=== PATIENT | female | born 2000 | race Hispanic/Latino ===

== ENCOUNTER 2021-05-28 22:58 | Emergency (ER) | payer OTHER ==
--- NOTE | 2021-05-29 | Event Note ---
ED Screening Note ED Screening Note: Patient is a 20-year-old female who presents emergency room with complaints of needing medical clearance for [facility] for drug rehab She states that she uses methamphetamines, heroin and also takes pills She states that she did heroin approximately 4 PM today Denies any alcohol use She denies any physical complaints at this time She denies any past medical history Allergy to Bactrim She denies any SI or HI This initial assessment/diagnostic orders/clinical plan/treatment(s) is/are subject to change based on patients health status, clinical progression and re- assessment by fellow clinical providers in the ED. Further treatment and workup at subsequent clinical providers discretion. Patient/guardian urged not to elope from the ED as their condition may be serious if not clinically assessed and managed. Initial orders include: Medical clearance orders
[2021-05-29 00:31] LABS: Hematocrit 46.8 % (30.3-42.9); Hemoglobin 15.2 gm/dl (10.1-14.3); Mean Corpuscular HGB Conc 33 % (30-34); Mean Corpuscular Volume 93 fl (79-97); Platelet Count 380 K/mm3 (140-440); Red Blood Count 5.04 M/mm3 (3.65-5.03)
[2021-05-29 00:46] LABS: Alanine Aminotransferase 57 units/L (7-56); BUN/Creatinine Ratio 20; Blood Urea Nitrogen 18 mg/dL (7-17); Calcium 9.4 mg/dL (8.4-10.2); Hemolysis Index 19
[2021-05-29 00:47] LABS: Bilirubin,Urine NEG (Negative); Blood,Urine NEG (Negative); Color,Urine Yellow (Yellow); Mucus,Urine FEW /HPF; Urobilinogen,Urine < 2.0 mg/dL (<2.0)
--- NOTE | 2021-05-29 01:01 | XRay Report ---
CHEST PA AND LATERAL VIEWS INDICATION: tachycardia, medical clearance. COMPARISON: None. FINDINGS: Support devices: None. Heart: Within normal limits. Lungs/Pleura: No acute pulmonary or pleural findings. IMPRESSION: 1. No acute findings. Signer Name: Bernardino Sandoval MD Signed: 05/29/2021 12:57 AM Workstation Name: [id number]
[2021-05-29 01:05] LABS: Amphetamine Screen,Urine PRESUMPTIVE NEGATIVE; Benzodiazepines Screen,Urine PRESUMPTIVE NEGATIVE; Cannabinoid Screen,Urine PRESUMPTIVE NEGATIVE; Cocaine Screen,Urine PRESUMPTIVE NEGATIVE; Methadone Screen,Urine PRESUMPTIVE NEGATIVE; Opiate Screen,Urine PRESUMPTIVE NEGATIVE
[2021-05-29 01:14] LABS: Hemoglobin 14.9 gm/dl (10.1-14.3); Mean Corpuscular HGB Conc 33 % (30-34); Mean Corpuscular Volume 91 fl (79-97); Platelet Count 396 K/mm3 (140-440); Red Blood Count 4.93 M/mm3 (3.65-5.03)
[2021-05-29 01:23] LABS: Band Neutrophils # (Manual) 0.5 K/mm3; Large Platelets Few; Monocytes % (Manual) 3.5 % (0.0-7.3); Platelet Estimate Consistent w Auto; RBC Morphology Normal; Total Cells Counted 200
[2021-05-29] MEDS ORDERED: ONDANSETRON 4 MG/2 ML INJ IV STA (02:03)
[2021-05-29] MEDS ORDERED: SODIUM CHLORIDE 0.9% 1000 ML 1,000 ML IV ONE ×2 (04:05→04:09)
--- NOTE | 2021-05-29 04:10 | Emergency Department Report ---
ED Medical Clearance HPI - General Chief complaint: Medical Clearance Stated complaint: HEROINE RELAPS/EVAL FOR ANCHOR Time Seen by Provider: 05/28/21 23:58 Source: patient Mode of arrival: Ambulatory - History of Present Illness Initial comments: Patient is a 20-year-old female that presents emergency room for medical clearance. Patient sent here from her rehab center. Patient was already in a rehab when she left and possibly one of the street and the rehab center says she needs to be medically cleared again due to her relapse. Patient states that she bought some pill form heroin and cut it up and snorted the pill fragments. Patient denies pain. Patient denies chest pain. Patient denies fever or chills. Patient states she has not eaten for 2 days. Patient states she last used approximately 4 hours prior to arrival. Patient denies recent travel. Patient denies recent international travel. Patient denies exposure to the novel coronavirus. Patient denies sick contacts. Patient denies fever and chills. Patient denies cough. Patient denies diarrhea. Patient denies coming in contact with anybody with symptoms of the novel coronavirus. Complaint: medical clearance request -: Sudden Reason for Medical Clearance: intoxication Alledged Intoxication: Yes Compliant with Home Medications: No Associated Symptoms: denies other symptoms. denies: chest pain, shortness of breath, palpitations, diaphoresis, confusion, cough, fever/chills, headaches, anorexia, malaise, nausea/vomiting, rash, seizure, syncope, weakness Treatments Prior to Arrival: none Home medications: Previous Rx's Medication Instructions Recorded Last Taken Type Doxycycline Hyclate [Doxycycline 100 mg PO Q12HR 7 Days #14 tab 05/29/21 Unknown Rx Hyclate TAB] Allergies/Adverse reactions: Allergies Allergy/AdvReac Type Severity Reaction Status Date / Time sulfamethoxazole Allergy Unknown Verified 05/28/21 23:51 [From Bactrim] trimethoprim [From Bactrim] Allergy Unknown Verified 05/28/21 23:51 ED Review of Systems ROS: Stated complaint: HEROINE RELAPS/EVAL FOR ANCHOR Other details as noted in HPI Constitutional: denies: chills, fever Eyes: denies: eye pain, eye discharge, vision change ENT: denies: ear pain, throat pain Respiratory: denies: cough, shortness of breath, wheezing Cardiovascular: denies: chest pain, palpitations Endocrine: no symptoms reported Gastrointestinal: denies: abdominal pain, nausea, diarrhea Genitourinary: denies: urgency, dysuria, discharge Musculoskeletal: denies: back pain, joint swelling, arthralgia Skin: denies: rash, lesions Neurological: denies: headache, weakness, paresthesias Psychiatric: denies: anxiety, depression Hematological/Lymphatic: denies: easy bleeding, easy bruising ED Past Medical Hx - Past Medical History Previous Medical History?: Yes Additional medical history: Opiate addiction - Surgical History Past Surgical History?: No - Family History Family history: no significant - Social History Smoking Status: Current Every Day Smoker Substance Use Type: Other - Medications Home Medications: Home Medications Medication Instructions Recorded Confirmed Last Taken Type Doxycycline Hyclate [Doxycycline 100 mg PO Q12HR 7 Days #14 tab 05/29/21 Unknown Rx Hyclate TAB] ED Physical Exam - General Limitations: No Limitations General appearance: alert, in no apparent distress - Head Head exam: Present: atraumatic, normocephalic - Eye Eye exam: Present: normal appearance - ENT ENT exam: Present: mucous membranes moist - Neck Neck exam: Present: normal inspection - Respiratory Respiratory exam: Present: normal lung sounds bilaterally. Absent: respiratory distress, wheezes, rales - Cardiovascular Cardiovascular Exam: Present: regular rate, normal rhythm. Absent: systolic mur mur, diastolic murmur, rubs, gallop - GI/Abdominal GI/Abdominal exam: Present: soft, normal bowel sounds. Absent: distended, tenderness, guarding - Extremities Exam Extremities exam: Present: normal inspection - Back Exam Back exam: Present: normal inspection - Neurological Exam Neurological exam: Present: alert, oriented X3 - Psychiatric Psychiatric exam: Present: normal affect, normal mood - Skin Skin exam: Present: warm, dry, intact, normal color. Absent: rash ED Course Vital Signs 05/28/21 05/29/21 05/29/21 23:54 04:51 05:01 Temperature 97.8 F Pulse Rate 131 H 119 H 119 H Respiratory 18 10 L 11 L Rate Blood Pressure 124/77 O2 Sat by Pulse 94 92 90 Oximetry 05/29/21 05/29/21 05/29/21 05:15 05:31 06:25 Temperature Pulse Rate 116 H 123 H 112 H Respiratory 8 L 9 L 16 Rate Blood Pressure 109/66 109/66 104/73 O2 Sat by Pulse 98 97 100 Oximetry 05/29/21 05/29/21 05/29/21 06:31 06:45 07:01 Temperature Pulse Rate 112 H 111 H 109 H Respiratory 11 L 11 L 12 Rate Blood Pressure 104/73 104/73 109/66 O2 Sat by Pulse 100 100 96 Oximetry 05/29/21 05/29/21 05/29/21 07:15 07:30 07:31 Temperature 98.4 F Pulse Rate 111 H 113 H Respiratory 12 10 L Rate Blood Pressure 109/66 109/66 O2 Sat by Pulse 92 89 Oximetry 05/29/21 05/29/21 05/29/21 07:45 07:46 08:01 Temperature Pulse Rate 109 H 113 H Respiratory 11 L 18 14 Rate Blood Pressure 104/73 103/64 O2 Sat by Pulse 90 99 96 Oximetry 05/29/21 05/29/21 05/29/21 08:15 08:31 08:45 Temperature Pulse Rate 116 H 112 H 107 H Respiratory 10 L 17 12 Rate Blood Pressure 103/64 103/64 103/64 O2 Sat by Pulse 95 97 90 Oximetry 05/29/21 05/29/21 05/29/21 09:01 09:15 09:31 Temperature Pulse Rate 109 H 106 H 110 H Respiratory 16 13 10 L Rate Blood Pressure 103/64 103/64 103/64 O2 Sat by Pulse 88 94 92 Oximetry 05/29/21 05/29/21 05/29/21 09:45 10:01 10:15 Temperature Pulse Rate 100 H 103 H Respiratory 15 12 Rate Blood Pressure 103/64 103/64 103/64 O2 Sat by Pulse 97 91 98 Oximetry 05/29/21 05/29/21 05/29/21 10:31 10:45 11:01 Temperature Pulse Rate Respiratory Rate Blood Pressure 103/64 103/64 103/64 O2 Sat by Pulse 92 89 89 Oximetry 05/29/21 05/29/21 05/29/21 11:15 11:31 11:45 Temperature Pulse Rate Respiratory Rate Blood Pressure 103/64 103/64 103/64 O2 Sat by Pulse 89 90 87 Oximetry 05/29/21 05/29/21 05/29/21 12:01 12:15 12:31 Temperature Pulse Rate Respiratory Rate Blood Pressure 103/64 103/64 103/64 O2 Sat by Pulse 87 92 95 Oximetry 05/29/21 05/29/21 05/29/21 12:45 13:01 13:15 Temperature Pulse Rate Respiratory Rate Blood Pressure 103/64 103/64 103/64 O2 Sat by Pulse 95 93 91 Oximetry 05/29/21 05/29/21 05/29/21 13:31 13:45 14:00 Temperature Pulse Rate Respiratory Rate Blood Pressure 103/64 103/64 O2 Sat by Pulse 91 91 89 Oximetry - Reevaluation(s) Reevaluation #1: Patient oxygen saturation 94% on room air. Patient is 90% with ambulation. Patient placed on oxygen. 05/29/21 04:34 Reevaluation #2: I discussed all results with patient. I discussed plan of care with patient. Patient agrees with plan of care and admission. Patient to be admitted to the hospitalist service. 05/29/21 06:14 - Consultations Consultation #1: Hospitalist consulted for admission. Hospitalist to admit patient. Dr. Schrader accepted the patient. 05/29/21 06:14 ED Medical Decision Making - Lab Data Result diagrams: 05/29/21 00:54 05/29/21 00:08 - EKG Data EKG shows normal: sinus rhythm, axis, intervals, QRS complexes, ST-T waves Rate: tachycardia - Radiology Data Radiology results: report reviewed, image reviewed interpreted by me: Chest x-ray: No pneumonia, no pneumothorax, no foreign body, no osseous findings, no acute findings CHEST PA AND LATERAL VIEWS INDICATION: tachycardia, medical clearance. COMPARISON: None. FINDINGS: Support devices: None. Heart: Within normal limits. Lungs/Pleura: No acute pulmonary or pleural findings. IMPRESSION: 1. No acute findings. CTA CHEST WITH IV CONTRAST INDICATION: Hypoxia and Tachycardia. TECHNIQUE: Axial CT images were obtained through the chest after injection of IV contrast. 3 plane MIP reconstructions were produced. All CT scans at this location are performed using CT dose reduction for ALARA by means of automated exposure control. COMPARISON: None available. FINDINGS: Pulmonary Arteries: No pulmonary emboli. Thoracic Aorta: No acute abnormality. Heart: Normal. Lungs: Within the anterior inferior right upper lobe, there is subtle groundglass airspace disease. Similar changes are noted in the anterior left upper lobe. Lungs are otherwise clear. Pleura: No pleural effusion. No pneumothorax. Lymph Nodes: No significant adenopathy. Additional Findings: None. Upper Abdomen: On axial image 119 there is hyperdensity in the silverio hepatis which measures 1.9 cm. Skeletal Structures: No significant osseous abnormality. IMPRESSION: 1. No CT evidence for pulmonary embolism. 2. Subtle groundglass opacities in the medial anterior upper lobes bilaterally. These are predominantly peribronchovascular in distribution and may be due to mild lower airways disease. 3. Nonspecific hyperdensity measuring 1.9 cm in the silverio hepatis. This is incompletely characterized on CT chest. Hepatic artery aneurysm could have this appearance. - Medical Decision Making Patient is a 20-year-old female that presents emergency room for medical clearance. Patient states that she was sent to [facility] patient states she was already patient was seen that he relapsed using heroin pills. Patient states never had a diagnosis of leukemia. Patient has done which showed evaded BUN and extremely elevated WBC 47. Patient's WBC was rechecked and it came out the same. Patient given fluids in ER. Patient also found to be tachycardic. Patient was hypoxic with ambulation. Patient ambulated twice and her oxygen saturation dropped below 90 on both encounters. Patient had a chest x-ray which was negative for acute findings. Due to the patient's hypoxia and tachycardia, the patient had a CTA of the chest and was negative for acute findings. Patient is unable to medically cleared for psychiatric admission due to the abnormal findings and hypoxia. Patient admitted to the hospitalist service for further evaluation treatment and final disposition and medical clearance. Critical care time documented due to the multiple reassessments, prolonged time at the bedside, interpretation of diagnostics and labs. - Differential Diagnosis Elevated WBC, dehydration, hypoxia, respiratory failure, PE, pneumonia ED Disposition Clinical Impression: Hypoxia, Dehydration, Tachycardia Respiratory failure Qualifiers: Chronicity: acute Respiratory failure complication: hypoxia Qualified Code(s): J96.01 - Acute respiratory failure with hypoxia Elevated WBC count Qualifiers: Leukocytosis type: unspecified Qualified Code(s): D72.829 - Elevated white blood cell count, unspecified Disposition: 09 ADMITTED INPATIENT Is pt being admited?: Yes Does the pt Need Aspirin: No Condition: Critical Instructions: Hypoxemia, Sinus Tachycardia, Dehydration, Adult, [id number] Prescriptions: Doxycycline Hyclate [Doxycycline Hyclate TAB] 100 mg PO Q12HR 7 Days #14 tab Referrals: PRIMARY CARE, [Primary Care Provider] - 3-5 Days Time of Disposition: 05:15
--- NOTE | 2021-05-29 06:15 | Cat Scan Report ---
CTA CHEST WITH IV CONTRAST INDICATION: Hypoxia and Tachycardia. TECHNIQUE: Axial CT images were obtained through the chest after injection of IV contrast. 3 plane MIP reconstru ctions were produced. All CT scans at this location are performed using CT dose reduction for ALARA b y means of automated exposure control. COMPARISON: None available. FINDINGS: Pulmonary Arteries: No pulmonary emboli. Thoracic Aorta: No acute abnormality. Heart: Normal. Lungs: Within the anterior inferior right upper lobe, there is subtle groundglass airspace disease. S imilar changes are noted in the anterior left upper lobe. Lungs are otherwise clear. Pleura: No pleural effusion. No pneumothorax. Lymph Nodes: No significant adenopathy. Additional Findings: None. Upper Abdomen: On axial image 119 there is hyperdensity in the silverio hepatis which measures 1.9 cm. Skeletal Structures: No significant osseous abnormality. IMPRESSION: 1. No CT evidence for pulmonary embolism. 2. Subtle groundglass opacities in the medial anterior upper lobes bilaterally. These are predominant ly peribronchovascular in distribution and may be due to mild lower airways disease. 3. Nonspecific hyperdensity measuring 1.9 cm in the silverio hepatis. This is incompletely characterized on CT chest. Hepatic artery aneurysm could have this appearance. Signer Name: Bernardino Sandoval MD Signed: 05/29/2021 6:11 AM Workstation Name: [id number]
[2021-05-29 09:28] VITALS: BP 103/64
--- NOTE | 2021-05-29 14:12 | History and Physical Report ---
History of Present Illness Date of admission: 05/29/21 06:04 Chief complaint: 20 yo female admitted for "medical clearance" and hypoxic resp failure. She states that she had used heroin several days ago and had self checked in to [facility]. Per hospital, she needed medical clearance. She states on my enoucnter that she had no acute complaints. She had no issues with SAUCEDO,CP,N/V/D,diarreha, chest pain, abdominal pain. Labs are significant for elevated white blood cell count to 47.6. Patient is afebrile, VSS. She denies any prior history of leukemia or recent weight loss. Remainder of ROS negative except for stated above PMhx: denies PSHx: denies FH reviewed non contributory. SH: smoking: Denies ETOH: denies Rec drugs: herion, attempting to sober from rec drug use Recently at [facility]. Medications and Allergies Allergies Allergy/AdvReac Type Severity Reaction Status Date / Time sulfamethoxazole Allergy Unknown Verified 05/28/21 23:51 [From Bactrim] trimethoprim [From Bactrim] Allergy Unknown Verified 05/28/21 23:51 Home Medications Medication Instructions Recorded Confirmed Last Taken Type No Known Home Medications [No 05/29/21 05/29/21 Unknown History Reported Home Medications] Review of Systems All systems: negative (for stated in HPI) Exam - Physical Exam Narrative exam: General appearance: Present: no acute distress, well-nourished - EENT Eyes: Present: PERRL, EOM intact. Absent: scleral icterus ENT: hearing intact, clear oral mucosa, dentition normal - Neck Neck: Present: supple, normal ROM - Respiratory Respiratory effort: normal Respiratory: Clear to ausculatation and percussion - Cardiovascular Rhythm: regular Heart Sounds: Present: S1 & S2. Absent: gallop, systolic murmur, diastolic murmur, rub, click - Extremities Extremities: no ischemia, pulses intact, pulses symmetrical, normal temperature, normal color, Full ROM. no edema. Peripheral Pulses: within normal limits - Abdominal General gastrointestinal: Present: soft, non-tender, non-distended, normal bowel sounds. Absent: mass - Integumentary Integumentary: Present: clear, warm, dry. Absent: rash - Musculoskeletal Musculoskeletal: strength equal bilaterally - Psychiatric Psychiatric: appropriate mood/affect, intact judgment & insight, memory intact, cooperative - Neurologic Neurologic: CNII-XII intact, no focal deficits, moves all extremities - Constitutional Vitals: Temp Pulse Resp BP Pulse Ox 98.4 F 103 H 12 103/64 89 05/29/21 07:30 05/29/21 10:01 05/29/21 10:01 05/29/21 13:45 05/29/21 14:00 Results - Labs CBC & Chem 7: 05/29/21 00:54 05/29/21 00:08 Labs: Laboratory Last Values WBC 47.6 K/mm3 (4.5-11.0) H* 05/29/21 00:54 RBC 4.93 M/mm3 (3.65-5.03) 05/29/21 00:54 Hgb 14.9 gm/dl (10.1-14.3) H 05/29/21 00:54 Hct 45.0 % (30.3-42.9) H 05/29/21 00:54 MCV 91 fl (79-97) 05/29/21 00:54 MCH 30 pg (28-32) 05/29/21 00:54 MCHC 33 % (30-34) 05/29/21 00:54 RDW 14.0 % (13.2-15.2) 05/29/21 00:54 Plt Count 396 K/mm3 (140-440) 05/29/21 00:54 Add Manual Diff Complete 05/29/21 00:08 Total Counted 200 05/29/21 00:08 Seg Neuts % (Manual) 85.0 % (40.0-70.0) H 05/29/21 00:08 Band Neutrophils % 1.0 % 05/29/21 00:08 Lymphocytes % (Manual) 8.0 % (13.4-35.0) L 05/29/21 00:08 Monocytes % (Manual) 3.5 % (0.0-7.3) 05/29/21 00:08 Metamyelocytes % 2.5 % 05/29/21 00:08 Nucleated RBC % Not Reportable 05/29/21 00:08 Seg Neutrophils # Man 38.9 K/mm3 (1.8-7.7) H 05/29/21 00:08 Band Neutrophils # 0.5 K/mm3 05/29/21 00:08 Lymphocytes # (Manual) 3.7 K/mm3 (1.2-5.4) 05/29/21 00:08 Abs React Lymphs (Man) 0.0 K/mm3 05/29/21 00:08 Monocytes # (Manual) 1.6 K/mm3 (0.0-0.8) H 05/29/21 00:08 Eosinophils # (Manual) 0.0 K/mm3 (0.0-0.4) 05/29/21 00:08 Basophils # (Manual) 0.0 K/mm3 (0.0-0.1) 05/29/21 00:08 Metamyelocytes # 1.1 K/mm3 05/29/21 00:08 Myelocytes # 0.0 K/mm3 05/29/21 00:08 Promyelocytes # 0.0 K/mm3 05/29/21 00:08 Blast Cells # 0.0 K/mm3 05/29/21 00:08 WBC Morphology Not Reportable 05/29/21 00:08 Hypersegmented Neuts Not Reportable 05/29/21 00:08 Hyposegmented Neuts Not Reportable 05/29/21 00:08 Hypogranular Neuts Not Reportable 05/29/21 00:08 Smudge Cells Not Reportable 05/29/21 00:08 Toxic Granulation Not Reportable 05/29/21 00:08 Toxic Vacuolation Not Reportable 05/29/21 00:08 Dohle Bodies Not Reportable 05/29/21 00:08 Pelger-Huet Anomaly Not Reportable 05/29/21 00:08 Khoa Rods Not Reportable 05/29/21 00:08 Platelet Estimate Consistent w auto 05/29/21 00:08 Clumped Platelets Not Reportable 05/29/21 00:08 Plt Clumps, EDTA Not Reportable 05/29/21 00:08 Large Platelets Few 05/29/21 00:08 Giant Platelets Not Reportable 05/29/21 00:08 Platelet Satelliting Not Reportable 05/29/21 00:08 Plt Morphology Comment Not Reportable 05/29/21 00:08 RBC Morphology Normal 05/29/21 00:08 Dimorphic RBCs Not Reportable 05/29/21 00:08 Polychromasia Not Reportable 05/29/21 00:08 Hypochromasia Not Reportable 05/29/21 00:08 Poikilocytosis Not Reportable 05/29/21 00:08 Anisocytosis Not Reportable 05/29/21 00:08 Microcytosis Not Reportable 05/29/21 00:08 Macrocytosis Not Reportable 05/29/21 00:08 Spherocytes Not Reportable 05/29/21 00:08 Pappenheimer Bodies Not Reportable 05/29/21 00:08 Sickle Cells Not Reportable 05/29/21 00:08 Target Cells Not Reportable 05/29/21 00:08 Tear Drop Cells Not Reportable 05/29/21 00:08 Ovalocytes Not Reportable 05/29/21 00:08 Helmet Cells Not Reportable 05/29/21 00:08 [place] Bodies Not Reportable 05/29/21 00:08 Powderly Rings Not Reportable 05/29/21 00:08 Mehreen Cells Not Reportable 05/29/21 00:08 Bite Cells Not Reportable 05/29/21 00:08 Crenated Cell Not Reportable 05/29/21 00:08 Elliptocytes Not Reportable 05/29/21 00:08 Acanthocytes (Spur) Not Reportable 05/29/21 00:08 Rouleaux Not Reportable 05/29/21 00:08 Hemoglobin C Crystals Not Reportable 05/29/21 00:08 Schistocytes Not Reportable 05/29/21 00:08 Malaria parasites Not Reportable 05/29/21 00:08 Korey Bodies Not Reportable 05/29/21 00:08 Hem Pathologist Commnt No 05/29/21 00:08 Sodium 140 mmol/L (137-145) 05/29/21 00:08 Potassium 4.7 mmol/L (3.6-5.0) 05/29/21 00:08 Chloride 98.7 mmol/L (98-107) 05/29/21 00:08 Carbon Dioxide 26 mmol/L (22-30) 05/29/21 00:08 Anion Gap 20 mmol/L 05/29/21 00:08 BUN 18 mg/dL (7-17) H 05/29/21 00:08 Creatinine 0.9 mg/dL (0.6-1.2) 05/29/21 00:08 Estimated GFR > 60 ml/min 05/29/21 00:08 BUN/Creatinine Ratio 20 % 05/29/21 00:08 Glucose 117 mg/dL (65-100) H 05/29/21 00:08 Calcium 9.4 mg/dL (8.4-10.2) 05/29/21 00:08 Total Bilirubin < 0.20 mg/dL (0.1-1.2) 05/29/21 00:08 AST 48 units/L (5-40) H 05/29/21 00:08 ALT 57 units/L (7-56) H 05/29/21 00:08 Alkaline Phosphatase 109 units/L (35-129) 05/29/21 00:08 Total Protein 8.4 g/dL (6.3-8.2) H 05/29/21 00:08 Albumin 5.0 g/dL (3.9-5) 05/29/21 00:08 Albumin/Globulin Ratio 1.5 % 05/29/21 00:08 HCG, Qual Negative (Negative) 05/29/21 00:08 Urine Color Yellow (Yellow) 05/29/21 Unknown Urine Turbidity Clear (Clear) 05/29/21 Unknown Urine pH 6.0 (5.0-7.0) 05/29/21 Unknown Ur Specific [place] 1.013 (1.003-1.030) 05/29/21 Unknown Urine Protein 30 mg/dl mg/dL (Negative) 05/29/21 Unknown Urine Glucose (UA) >=500 mg/dL (Negative) 05/29/21 Unknown Urine Ketones Neg mg/dL (Negative) 05/29/21 Unknown Urine Blood Neg (Negative) 05/29/21 Unknown Urine Nitrite Neg (Negative) 05/29/21 Unknown Urine Bilirubin Neg (Negative) 05/29/21 Unknown Urine Urobilinogen < 2.0 mg/dL (<2.0) 05/29/21 Unknown Ur Leukocyte Esterase Neg (Negative) 05/29/21 Unknown Urine WBC (Auto) 2.0 /HPF (0.0-6.0) 05/29/21 Unknown Urine RBC (Auto) 2.0 /HPF (0.0-6.0) 05/29/21 Unknown U Epithel Cells (Auto) 3.0 /HPF (0-13.0) 05/29/21 Unknown Urine Mucus Few /HPF 05/29/21 Unknown Salicylates < 0.3 mg/dL (2.8-20.0) L 05/29/21 00:08 Urine Opiates Screen Presumptive negative 05/29/21 Unknown Urine Methadone Screen Presumptive negative 05/29/21 Unknown Acetaminophen 5.0 ug/mL (10.0-30.0) L 05/29/21 00:08 Ur Barbiturates Screen Presumptive negative 05/29/21 Unknown Ur Phencyclidine Scrn Presumptive negative 05/29/21 Unknown Ur Amphetamines Screen Presumptive negative 05/29/21 Unknown U Benzodiazepines Scrn Presumptive negative 05/29/21 Unknown Urine Cocaine Screen Presumptive negative 05/29/21 Unknown U Marijuana (THC) Screen Presumptive negative 05/29/21 Unknown Drugs of Abuse Note Disclamer 05/29/21 Unknown Plasma/Serum Alcohol < 0.01 % (0-0.07) 05/29/21 00:08 Assessment and Plan Assessment and plan: Leukocytosis - elevated to 47.6. suspect demargination from drug ingestion. patient does have a furuncle on left check but this is likely not the cause of wbc count. - asympatomatic, no fevers, chills, n/v/d, weight loss - vital signs were stable on my encounter. - will recommend that the patient follows up with primary care doctor and complete cbc in 3-4 weeks. Shortness of breath - was on room air on encounter saturating at 100% - patient denied any shortness of breath on my encounter Soft tissue infection on skin - boil/furuncle on left check. - has been treated with clindamycin per patient - will recommend she follow up outpatient to have this I&D, no systemic symptoms. - d/c home on 7 day course of doxycycline. Dispo: Advised to present at [facility] for rehab services.
--- NOTE | 2021-05-29 14:14 | Discharge Summary ---
Providers - Providers Date of Admission: 05/29/21 06:04 Date of discharge: 05/29/21 Attending physician: XU VIVAS MD Primary care physician: SLIPCOVER CUTTER Hospitalization Reason for admission: medical clearance Condition: Critical Hospital course: HPI: 20 yo female admitted for "medical clearance" and hypoxic resp failure. She states that she had used heroin several days ago and had self checked in to [facility]. Per hospital, she needed medical clearance. She states on my enoucnter that she had no acute complaints. She had no issues with SAUCEDO,CP,N/V/D,diarreha, chest pain, abdominal pain. Labs are significant for elevated white blood cell count to 47.6. Patient is afebrile, VSS. She denies any prior history of leukemia or recent weight loss. Remainder of ROS negative except for stated above PMhx: denies PSHx: denies FH reviewed non contributory. 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 A&P Leukocytosis - elevated to 47.6. suspect demargination from drug ingestion. patient does have a furuncle on left check but this is likely not the cause of wbc count. - asympatomatic, no fevers, chills, n/v/d, weight loss - vital signs were stable on my encounter. - will recommend that the patient follows up with primary care doctor and complete cbc in 3-4 weeks. Shortness of breath - was on room air on encounter saturating at 100% - patient denied any shortness of breath on my encounter -CTA chest: no PE, some ground glass opacification in RUL. - CTA chest findings are clinically insignificant. She likely has some inflammation from snorting crushed rec drugs. There is a 1.9 cm dilation at silverio hepatis. She should get repeat imaging outpatient with CTAP with contrast to determine exact nature of this. Again this is not currently clinically significant for the purposes of the patient's stay and is not causing any acute abdominal pain for patient. She was advised to follow up outpatient for this and was agreeable to this. Soft tissue infection on skin - boil/furuncle on left check. - has been treated with clindamycin per patient - will recommend she follow up outpatient to have this I&D, no systemic symptoms. - d/c home on 7 day course of doxycycline. Nausea/vomiting - now resolved. Dispo: Advised to present at [facility] for rehab services. Please follow up with a primary care doctor in 1 week to get labs (follow up on wbc count), discuss your left check boil, findings on CTA chest, and ongoing drug abuse rehabilitation. Disposition: ADMITTED INPATIENT Final Discharge Diagnosis (Prints w/discharge instructions): Leukocytosis from drug ingestion Time spent for discharge: 25 - Discharge Diagnoses (1) Leukocytosis Status: Acute (2) Cutaneous abscess of face Status: Acute (3) Shortness of breath Status: Acute (4) Drug abuse Status: Acute (5) Nausea & vomiting Status: Acute Core Measure Documentation - Palliative Care Palliative Care/ Comfort Measures: Not Applicable - Core Measures Any of the following diagnoses?: none Exam - Physical Exam Narrative exam: General appearance: Present: no acute distress, well-nourished - EENT Eyes: Present: PERRL, EOM intact. Absent: scleral icterus ENT: hearing intact, clear oral mucosa, dentition normal - Neck Neck: Present: supple, normal ROM - Respiratory Respiratory effort: normal Respiratory: Clear to ausculatation and percussion - Cardiovascular Rhythm: regular Heart Sounds: Present: S1 & S2. Absent: gallop, systolic murmur, diastolic murmur, rub, click - Extremities Extremities: no ischemia, pulses intact, pulses symmetrical, normal temperature, normal color, Full ROM. no edema. Peripheral Pulses: within normal limits - Abdominal General gastrointestinal: Present: soft, non-tender, non-distended, normal bowel sounds. Absent: mass - Integumentary Integumentary: Present: clear, warm, dry. Absent: rash - Musculoskeletal Musculoskeletal: strength equal bilaterally - Psychiatric Psychiatric: appropriate mood/affect, intact judgment & insight, memory intact, cooperative - Neurologic Neurologic: CNII-XII intact, no focal deficits, moves all extremities - Constitutional Vitals: Temp Pulse Resp BP Pulse Ox 98.4 F 103 H 12 103/64 89 05/29/21 07:30 05/29/21 10:01 05/29/21 10:01 05/29/21 13:45 05/29/21 14:00 Plan Activity: no restrictions Weight Bearing Status: Full Weight Bearing Diet: regular Follow up with: PRIMARY CAREMD [Primary Care Provider] - 3-5 Days Prescriptions: Doxycycline Hyclate [Doxycycline Hyclate TAB] 100 mg PO Q12HR 7 Days #14 tab
== END 2021-05-29 17:05 | disposition admitted as inpatient to this hospital (09) ==
LOC: ED 22:58 → UNDOADMOB 05-29 06:04 → 4A 05-29 06:04 → ED 05-29 17:05
DX: J96.01 Acute respiratory failure with hypoxia (principal); E86.0 Dehydration; D72.829 Elevated white blood cell count, unspecified; R00.0 Tachycardia, unspecified; F11.20 Opioid dependence, uncomplicated; F17.290 Nicotine dependence, other tobacco product, uncomplicated; Z88.2 Allergy status to sulfonamides
CPT/HCPCS: 36415; 71046; 71275; 80053; 80307; 81001; 84703; 85007; 85025; 85027; 96361; 96374; 99285; J2405; J7030; Q9967; 80320; G0480